=== PATIENT | female | born 1980 | race Caucasian/White ===

== ENCOUNTER 2016-08-05 04:43 | Inpatient (IN) ==
[2016-08-05 05:35] LABS: Bilirubin,Urine Negative (Negative); Blood,Urine Negative (Negative); Clarity,Urine Cloudy (Clear); Color,Urine Yellow (Yellow); Glucose,Urine (UA) Normal (Normal); Ketones,Urine Negative (Negative); Leukocyte Esterase,Urine Negative (Negative); Nitrite,Urine Negative (Negative); Protein,Urine 30 mg/dL (Neg-Trace); Specific Gravity,Urine 1.019 (1.010-1.025); Urobilinogen,Urine Normal (Normal)
[2016-08-05 05:38] LABS: Bacteria,Urine Few per hpf (None-Few); Hyaline Casts,Urine None Seen per lpf (None-Few); Squamous Epithelial Cell,Urine Many per lpf (None-Few)
[2016-08-05 05:42] LABS: Amphetamine Screen,Urine Negative ng/mL (Cutoff=1000); Barbiturate Screen,Urine Negative ng/mL (Cutoff=200); Benzodiazepines Screen,Urine Negative ng/mL (Cutoff=200); Cannabinoid Screen,Urine Negative ng/mL (Cutoff = 50); Cocaine Screen,Urine Negative ng/mL (Cutoff= 300); Opiate Screen,Urine Positive ng/mL (Cutoff=300); Phencyclidine Screen,Urine Negative ng/mL (Cutoff=25)
[2016-08-05 06:43] LABS: Red Cell Distribution Width 14.6 % (11.5-14.5)
[2016-08-05 06:45] LABS: Hemoglobin 9.9 g/dL (11.5-15.4); Mean Corpuscular Hemoglobin 31.5 pg (28.0-33.3); Mean Corpuscular Volume 95.5 fL (83.0-100.0); Mean Platelet Volume 9.1 fL (9.4-12.4); Monocytes # 1.1 K/mcL (0.0-1.3); Platelet Count 488 K/mcL (140-400); Red Blood Count 3.14 M/mcL (3.82-4.97)
[2016-08-05] MEDS ORDERED: Ipratropium/Albuterol Neb 3 ML IH ONE (06:52)
[2016-08-05 06:59] LABS: Alanine Aminotransferase 7 Units/L (0-55); Albumin 2.9 g/dL (3.5-5.0); Albumin/Globulin Ratio 0.7 (1.1-2.2); Alkaline Phosphatase 78 Units/L (38-126); Aspartate Amino Transferase 14 Units/L (5-34); BUN/Creatinine Ratio 10 (6-26); Bilirubin,Total 0.2 mg/dL (0.2-1.2); Blood Urea Nitrogen 7 mg/dL (7-20); Calcium 8.8 mg/dL (8.6-10.8); Carbon Dioxide 24 mEq/L (19-29); Chloride 101 mEq/L (98-109); Globulin 4.2 g/dL (2.4-3.5); Glucose 113 mg/dL (70-99); Osmolality,Calculated 277 (280-300); Sodium 134 mEq/L (136-145); Total Protein 7.1 g/dL (6.0-8.3); eGFR For African Americans > 60 (> 60); eGFR For Non-African Americans > 60 (> 60)
[2016-08-05 07:04] LABS: Lymphocytes # 1.6 K/mcL (0.6-4.6)
--- NOTE | 2016-08-05 07:08 | Emergency Department Note ---
Disposition Clinical Impression: Generalized seizure Aspiration pneumonia Qualifiers: Aspiration pneumonia type: due to gastric secretions Laterality: bilateral Lung location: lower lobe of lung Qualified Code(s): J69.0 - Pneumonitis due to inhalation of food and vomit Disposition: Admitted As Inpatient Referrals: Na Rajan MD [Primary Care Provider] - Forms: ED Satisfaction Letter Time of Disposition: 08:44 Seizure HPI - General Chief Complaint: ED Seizure Stated Complaint: Seizure Time Seen by Provider: 08/05/16 05:26 Source: patient, EMS Limitations: no limitations - History of Present Illness HPI Narrative: this is a continuation of care. please merge these 2 charts. No change in patients condition. 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 Constitutional: Denies: fever, chills, weakness, weight change Eyes: Denies: eye pain, eye discharge, vision change ENT ED: Denies: ear pain, throat pain, dental pain, hearing loss, epistaxis, congestion, dysphagia Cardiovascular: Denies: chest pain, palpitations, dyspnea on exertion, edema, syncope Respiratory: Denies: cough, dyspnea, wheezes, hemoptysis, stridor Gastrointestinal: Denies: abdominal pain, nausea, vomiting, diarrhea, constipation, hematemesis, melena, hematochezia Genitourinary: Denies: dysuria, frequency, hematuria, discharge Musculoskeletal: Denies: back pain, neck pain, arthralgia, myalgia Integumentary: Denies: rash, abrasion, lesions Neurological: Denies: headache, weakness, numbness, paresthesias, confusion, abnormal gait, vertigo Psychiatric: Denies: anxiety, depression, suicidal thoughts, homicidal thoughts , auditory hallucinations, visual hallucinations Endocrine: Denies: fatigue Past Medical History - Past Medical History Attestation: Yes The following information was validated with the patient. Source: patient, nursing notes reviewed Medical history: Reports: no medical history Psychiatric history: Reports: ADHD, depression - Social History Smoking Status: Current every day smoker Smokeless Tobacco Status: No Alcohol use: Reports: occasionally Drug use: Reports: none Physical Exam - General Limitations: no limitations General appearance: alert, other - Head Head exam: atraumatic, normocephalic, normal inspection - Eye Eye exam: Present: normal appearance, PERRL, EOMI Course - Consultations Consultation #1: spoke with hospitalist, Dr. Love who accepted the patient. Time: 08:40 Vital Signs Temperature 98.4 F 08/05/16 04:44 Pulse Rate 107 08/05/16 04:44 Respiratory Rate 18 08/05/16 04:44 Blood Pressure 112/44 08/05/16 04:44 O2 Sat by Pulse Oximetry 93 L 08/05/16 04:44 Temperature 98.4 F 08/05/16 04:44 Pulse Rate 86 08/05/16 08:01 Respiratory Rate 12 08/05/16 08:01 Blood Pressure 114/70 08/05/16 08:01 O2 Sat by Pulse Oximetry 100 08/05/16 08:01 Oxygen Delivery Oxygen Delivery Room Air Seizure - MDM Narrative Medical decision making narrative: Aspiration pneumonia Seizure Opiate Use - narcan did work after administration more alert however, SAO2 on room air 88-90%, on 2 l / n.c. 94-98% - Differential Diagnosis Likely: generalized seizure - Lab Data Result diagrams: 08/05/16 06:28 08/05/16 06:28 Lab Results 08/05/16 08/05/16 08/05/16 Range/Units 05:21 05:21 05:21 WBC (4.3-11.1) K/mcL RBC (3.82-4.97) M/mcL Hgb (11.5-15.4) g/dL Hct (35.3-44.9) % MCV (83.0-100.0) fL MCH (28.0-33.3) pg MCHC (31.6-35.5) g/dL RDW (11.5-14.5) % Plt Count (140-400) K/mcL MPV (9.4-12.4) fL Seg Neutrophils % % Lymphocytes % % Monocytes % % Neutrophils # (1.6-8.9) K/mcL Lymphocytes # (0.6-4.6) K/mcL Monocytes # (0.0-1.3) K/mcL Platelet Estimate (Normal) Sodium (136-145) mEq/L Potassium (3.5-4.5) mEq/L Chloride (98-109) mEq/L Carbon Dioxide (19-29) mEq/L BUN (7-20) mg/dL Creatinine (0.57-1.11) mg/dL Est GFR ( Amer) (> 60) Est GFR (Non-Af Amer) (> 60) BUN/Creatinine Ratio (6-26) Glucose (70-99) mg/dL Calculated Osmolality (280-300) Calcium (8.6-10.8) mg/dL Total Bilirubin (0.2-1.2) mg/dL AST (5-34) Units/L ALT (0-55) Units/L Alkaline Phosphatase (38-126) Units/L Serum Total Protein (6.0-8.3) g/dL Albumin (3.5-5.0) g/dL Globulin (2.4-3.5) g/dL Albumin/Globulin Ratio (1.1-2.2) Urine Color Yellow (Yellow) Urine Clarity Cloudy A (Clear) Urine pH 6.0 (5.0-8.0) pH Units Ur Specific [place] 1.019 (1.010-1.025) Urine Protein 30 H (Neg-Trace) mg/dL Urine Glucose (UA) Normal (Normal) mg/dL Urine Ketones Negative (Negative) mg/dL Urine Blood Negative (Negative) Urine Nitrite Negative (Negative) Urine Bilirubin Negative (Negative) Urine Urobilinogen Normal (Normal) mg/dL Ur Leukocyte Esterase Negative (Negative) Urine Microscopic RBC 3-5 H (0-3) per hpf Urine Microscopic WBC 5-15 H (0-3) per hpf Ur Squamous Epith Cells Many H (None-Few) per lpf Urine Bacteria Few (None-Few) per hpf Hyaline Casts None Seen (None-Few) per lpf Ur Culture Indicated? YES A (NO) Urine Test Negative (Negative) Urine Opiates Screen Positive H (Padiud=014) ng/mL Ur Barbiturates Screen Negative (Jsueke=721) ng/mL Ur Phencyclidine Scrn Negative (Cutoff=25) ng/mL Ur Amphetamines Screen Negative (Lkqjvr=1160) ng/mL U Benzodiazepines Scrn Negative (Owmddf=487) ng/mL Urine Cocaine Screen Negative (Cutoff= 300) ng/mL U Marijuana (THC) Screen Negative (Cutoff = 50) ng/mL 08/05/16 08/05/16 Range/Units 06:28 06:28 WBC 26.7 H (4.3-11.1) K/mcL RBC 3.14 L (3.82-4.97) M/mcL Hgb 9.9 L (11.5-15.4) g/dL Hct 30.0 L (35.3-44.9) % MCV 95.5 (83.0-100.0) fL MCH 31.5 (28.0-33.3) pg MCHC 33.0 (31.6-35.5) g/dL RDW 14.6 H (11.5-14.5) % Plt Count 488 H (140-400) K/mcL MPV 9.1 L (9.4-12.4) fL Seg Neutrophils % 90.0 % Lymphocytes % 6.0 % Monocytes % 4.0 % Neutrophils # 24.0 H (1.6-8.9) K/mcL Lymphocytes # 1.6 (0.6-4.6) K/mcL Monocytes # 1.1 (0.0-1.3) K/mcL Platelet Estimate Slight increase H (Normal) Sodium 134 L (136-145) mEq/L Potassium 4.0 (3.5-4.5) mEq/L Chloride 101 (98-109) mEq/L Carbon Dioxide 24 (19-29) mEq/L BUN 7 (7-20) mg/dL Creatinine 0.67 (0.57-1.11) mg/dL Est GFR ( Amer) > 60 (> 60) Est GFR (Non-Af Amer) > 60 (> 60) BUN/Creatinine Ratio 10 (6-26) Glucose 113 H (70-99) mg/dL Calculated Osmolality 277 L (280-300) Calcium 8.8 (8.6-10.8) mg/dL Total Bilirubin 0.2 (0.2-1.2) mg/dL AST 14 (5-34) Units/L ALT 7 (0-55) Units/L Alkaline Phosphatase 78 (38-126) Units/L Serum Total Protein 7.1 (6.0-8.3) g/dL Albumin 2.9 L (3.5-5.0) g/dL Globulin 4.2 H (2.4-3.5) g/dL Albumin/Globulin Ratio 0.7 L (1.1-2.2) Urine Color (Yellow) Urine Clarity (Clear) Urine pH (5.0-8.0) pH Units Ur Specific [place] (1.010-1.025) Urine Protein (Neg-Trace) mg/dL Urine Glucose (UA) (Normal) mg/dL Urine Ketones (Negative) mg/dL Urine Blood (Negative) Urine Nitrite (Negative) Urine Bilirubin (Negative) Urine Urobilinogen (Normal) mg/dL Ur Leukocyte Esterase (Negative) Urine Microscopic RBC (0-3) per hpf Urine Microscopic WBC (0-3) per hpf Ur Squamous Epith Cells (None-Few) per lpf Urine Bacteria (None-Few) per hpf Hyaline Casts (None-Few) per lpf Ur Culture Indicated? (NO) Urine Test (Negative) Urine Opiates Screen (Qkvtun=050) ng/mL Ur Barbiturates Screen (Avbvpi=915) ng/mL Ur Phencyclidine Scrn (Cutoff=25) ng/mL Ur Amphetamines Screen (Fjzqqj=9921) ng/mL U Benzodiazepines Scrn (Eatrgy=019) ng/mL Urine Cocaine Screen (Cutoff= 300) ng/mL U Marijuana (THC) Screen (Cutoff = 50) ng/mL Attestation Statement - Attestation Attestation: I examined this patient and my medical decision-making was reviewed with the [employer] ARCHITECT/PA/Advanced Practice Nurse/Resident Physician. I agree with the documented findings, disposition and treatment plan as described except to the extent set forth below. Patient emergency department after reported seizure. Patient denies any history of seizure. She denies taking any opiates that she tested positive for. She does admit to half a Percocet yesterday morning. On exam she is awake and alert. Clear lungs with noted to be hypoxic. Plan. The patient has aspiration pneumonia on her chest x-ray. This is only hypoxic at 88% on room air. She is given antibiotics and admitted. Seizure workup has been unremarkable.
[2016-08-05] MEDS ORDERED: Naloxone 0.4 MG/ML INJ IVP ONE (07:26)
[2016-08-05] MEDS ORDERED: Piperacillin/Tazobactam 3.375 GM in D5% in Water (Mini-Bag+) 100 ML IVPB ONE (08:27)
[2016-08-05] MEDS ORDERED: Naloxone 0.4 MG/ML INJ IVP PRN (08:51)
--- NOTE | 2016-08-05 09:22 | Internal Med History&Physical ---
Date of Encounter: 08/05/16 Time of Encounter: 08:50 Assessment and Plan (1) Generalized seizure Current visit: Yes Status: Acute Patient with a new episode of seizure. Will place under observation with seizure precautions. Get MRI of the brain and EEG. No indication for antibiotic agents at this time. Could be related to opiate use. (2) Aspiration pneumonia Current visit: Yes Status: Acute Likely due to seizure. WBC count is elevated. Patient was hypoxic initially but is now improving and is saturating well on room air. Will treat with empiric antibiotics. Qualifiers: Aspiration pneumonia type: due to gastric secretions Laterality: bilateral Lung location: lower lobe of lung Qualified Code(s): J69.0 - Pneumonitis due to inhalation of food and vomit Internal Medicine - H&P: HPI Chief complaint: Seizure Admitted From: Emergency Dept Plans for Post Hospital Care: Home History of present illness: Ms. Fontana is a 35 year old female with no significant past medical history presented to the ER with a witnessed seizure earlier today. The patient herself does not recollect anything that happened but she remembers finding her partner trying to calm her down and she apparently told her that she had a seizure. It appears to have been a generalized tonic-clonic/jerking activity. With some postictal period. No bowel bladder incontinence or tongue biting. Patient does not have a history of seizures since she has never had seizures in the past. She denies any difficulty breathing or shortness of breath at this time. Denies any cough. She is a chronic smoker. Denies any wheezing. No chest pain fever chills or night sweats. The patient does report that she was having a headache earlier in the day and she was given Percocet for it by a family friend. Past Med Surg Social Fam HX - Past Medical History Attestation: Yes The following information was validated with the patient. Medical history: no medical history Psychiatric history: ADHD, depression - Social History Smoking Status: Current every day smoker Smokeless Tobacco Status: No Alcohol use: occasionally Drug use: none - Additional Family History Additional family history: Reviewed and found noncontributory at this time Internal Medicine - H&P: Meds Albuterol Sulfate [Albuterol Inhaler] 2 puff IH QID 2 Days 12/16/15 [Rx] TraMADol [Ultram] 50 mg PO Q6HR PRN #10 tablet 12/16/15 [Rx] Multivitamin [One Daily Essential] 1 tab PO DAILY 08/05/16 [History] Allergies azithromycin [From Zithromax Z-Carlos] Allergy (Verified 12/16/15 11:41) Rash All Systems PM: A 10-system review of systems was performed and is negative for pertinent findings except as documented above in the HPI. - Constitutional Constitutional: no chills, no fever(s), no night sweats - EENT Eyes: no change in vision, no discharge, no pain, no photophobia Ears: no ear discharge, no ear pain, no tinnitus Nose, mouth and throat: no dysphagia, no nasal discharge, no neck pain, no sore throat - Cardiovascular Cardiovascular ROS IM: no chest pain, no diaphoresis, no dyspnea, no lightheadedness, no palpitations, no syncope - Respiratory Respiratory: no cough, no dyspnea, no wheezing, no excessive phlegm production - Gastrointestinal Gastrointestinal: no abdominal pain, no diarrhea, no hematemesis, no hematochezia, no melena, no nausea, no vomiting - Genitourinary Genitourinary: no change in urinary stream, no dysuria, no flank pain, no hematuria - Musculoskeletal Musculoskeletal ROS IM: no numbness, no tingling - Integumentary Integumentary IM: no rash, no unusual bruising - Neurological Neurological ROS: convulsions, no confusion, no focal weakness, no numbness, no tingling, no tremor(s) - Hematologic/Lymphatic Hematologic/Lymphatic: no easy bruising - Constitutional Vitals: Temp Pulse Resp BP Pulse Ox 98.4 F 86 12 114/70 100 08/05/16 04:44 08/05/16 08:01 08/05/16 08:01 08/05/16 08:01 08/05/16 08:01 General appearance: Present: A&O X 3, no acute distress, answers questions appropriately - Eye Eye exam: Present: PERRL, conjuntiva pink, sclera anicteric Pupils: Present: PERRL - Neck Neck exam general surgery: Present: supple, trachea midline. Absent: lymphadenopathy - Respiratory Respiratory exam: Present: CTAB. Absent: accessory muscle use, rales, rhonchi, wheezes - Cardiovascular Cardiovascular exam: Present: RRR, +S1, +S2. Absent: diastolic murmur, gallop, rubs, systolic murmur - GI/Abdominal GI/Abdominal exam: Present: normal bowel sounds, soft, no peritoneal signs. Absent: distended, tenderness - Extremities Exam Extremities exam: Present: warm, radial pulses palpable and symetrical. Absent : calf tenderness, cyanotic, pedal edema - Neurological Exam Neurological exam: Present: alert, CN II-XII intact, oriented X3, no focal deficits. Absent: facial droop, speech deficit - Skin Skin exam: Present: dry, intact Internal Med - H&P Results - Labs CBC & Chem 7: 08/05/16 06:28 08/05/16 06:28 Labs: Short CBC 08/05/16 Range/Units 06:28 WBC 26.7 H (4.3-11.1) K/mcL Hgb 9.9 L (11.5-15.4) g/dL Hct 30.0 L (35.3-44.9) % Plt Count 488 H (140-400) K/mcL Neutrophils # 24.0 H (1.6-8.9) K/mcL BMP 08/05/16 06:28 Sodium 134 L Potassium 4.0 Chloride 101 Carbon Dioxide 24 BUN 7 Creatinine 0.67 Glucose 113 H Calcium 8.8 Liver Function 08/05/16 Range/Units 06:28 Total Bilirubin 0.2 (0.2-1.2) mg/dL AST 14 (5-34) Units/L ALT 7 (0-55) Units/L Alkaline Phosphatase 78 (38-126) Units/L Albumin 2.9 L (3.5-5.0) g/dL Urine 08/05/16 Range/Units 05:21 Urine Color Yellow (Yellow) Urine Clarity Cloudy A (Clear) Urine pH 6.0 (5.0-8.0) pH Units Ur Specific [place] 1.019 (1.010-1.025) Urine Protein 30 H (Neg-Trace) mg/dL Urine Glucose (UA) Normal (Normal) mg/dL - Impressions ITS Impressions Head CT 08/05/16 05:26 IMPRESSION: No acute intracranial abnormality. D/ / Arnaud Mason MD / Arnaud Mason MD Interpreting Provider: Arnaud Mason MD Chest X-Ray 08/05/16 07:18 IMPRESSION: Bilateral lower lobe pulmonary opacities consistent with aspiration pneumonitis. D/ / Ivan Lr MD / Ivan Lr MD Interpreting Provider: Ivan Lr MD - Attending Attestation This document has been at least partially created by [employer] recognition technology by Dr. Love. Errors in grammar, wording or other phrases may exist. If errors are found after the documentation is signed, they will be addressed individually in the addendum section of this document when appropriate.
[2016-08-05] MEDS ORDERED: Ipratropium/Albuterol Neb 3 ML IH PRN (09:31)
[2016-08-05] MEDS: 0.9 % Sodium Chloride 1,000 ML IVC SCH ×2 (11:56→21:33)
[2016-08-05] MEDS: Nicotine 21 MG PATCH.TD24 TD SCH (11:56)
[2016-08-05] MEDS: Clindamycin 600 MG/50 ML 600 MG/50 ML IV.SOLN IVPB SCH (16:17)
--- NOTE | 2016-08-05 16:49 | EEG/EMG/Oth Biometrics Report ---
EEG Procedure Report Date of procedure: 08/05/16 EEG Procedure: Routine EEG Procedure Note: This EEG was acquired with standard international 10-20 electrodes placement system with EKG recording. Awake background activity was characterized by presence of posterior dominant alpha rhythm with best frequency up to 8.5 Hz. the background activity was reactive to eye openings. Sleep stages were characterized by presence of background slowing, vertex waves, K-complexes and sleep spindles. there are no electrographic seizures identified. No epileptifrom discharges or focal slowing noted during the study. Photic stimulation produced no significant abnormalities. EKG tracing showed no cardiac dysarrhythmia. Impression: this is a normal awake and asleep EEG. Clinical correlation: normal EEGs, however, do not exclude epilepsy. Clinical correlation advised.
[2016-08-05] MEDS: Acetaminophen 325 MG TABLET PO PRN ×2 (16:56→22:52)
--- NOTE | 2016-08-05 17:25 | Neurology - Consult Note ---
Date of Encounter: 08/05/16 Time of Encounter: 17:23 Assessment and Plan (1) Generalized seizure Current Visit: Yes Status: Acute first episode of seizure with unclear provocation but does have anxiety and chronic pain using both percocet and valium. Coulld also have susceptibility for generalized epilepsy under stress or provocation. MRI of brain and EEG normal studies. Will recommend no antiepileptic therapy at this time. Seizure precaution advised. No further testing recommended. patient to follow up with PCP for proper treatment of anxiety. History of Present Illness Chief complaint: seizure HPI: Ms. Fontana is a 35 year old female with PMH significant for chronic pain, anxiety and insomnia who developed witnessed, first episode of seizure. NO warnings, no tongue biting and no urinary incontinence. Witnesses not available to review. Feels body sore and 'brain stooped'. MRI of brain and EEG normal studies. No past history of seizures. Son has febrile seizures. Takes valium for anxiety and percocet for chronic pain. Past Med Surg Social Fam HX - Past Medical History Medical history: no medical history Psychiatric history: ADHD, depression - Past Surgical History Surgical History: no surgical history - Social History Smoking Status: Current every day smoker Packs per day: 2 Smokeless Tobacco Status: No Alcohol use: none, rarely Drug use: none Medications and Allergies Albuterol Sulfate [Albuterol Inhaler] 2 puff IH QID 2 Days 12/16/15 [Rx] TraMADol [Ultram] 50 mg PO Q6HR PRN #10 tablet 12/16/15 [Rx] Multivitamin [One Daily Essential] 1 tab PO DAILY 08/05/16 [History] Allergies azithromycin [From Zithromax Z-Carlos] Allergy (Verified 12/16/15 11:41) Rash All Systems: A 10-system review of systems was performed and is negative for pertinent findings except as documented above in the HPI. Physical Examination - Vital Signs Vital Signs: Initial Vital Signs Temp Pulse Resp BP Pulse Ox 98.4 F 107 18 112/44 93 L 08/05/16 04:44 08/05/16 04:44 08/05/16 04:44 08/05/16 04:44 08/05/16 04:44 - Constitutional General appearance: comfortable - Neurologic Detailed motor examination: full strength in all major muscle groups Motor examination - right side: 5/5: deltoids, biceps, triceps, wrist flexion, wrist extension, oil burner repairer, hip flexors, tibialis Anterior, quadriceps, toe extension (EHL), plantarflexion Motor examination - left side: 09/20: deltoids, biceps, triceps, wrist flexion, wrist extension, hip flexors, oil burner repairer, quadriceps, tibialis Anterior, toe extension (EHL), plantarflexion Detailed sensory examination: intact Reflex and gait examination: intact Mental Status Examination: awake, alert, oriented to person, oriented to place, oriented to time, follows commands appropriately, answers questions appropriately, no agnosia, no aphasia, no aproxia Cranial nerve examination: PERRL, EOMI, visual garcia intact, corneal reflexes brisk symmetrically, sensory to face intact, mastication intact, no facial asymmetry is present, no dysarthria, hearing is intact symmetrically, soft palate elevates bilaterally upon phonation, gag reflex intact, flexes SCM and trapezius muscles symmetrically with full power, tongue protrudes midline, no atrophy or facial fasiculations present Cerebellar examination: no dysmetria, performs finger to nose and heel to bates symmetrically without ataxia, no gait ataxia, no truncal ataxia, no difficulty with rapid alternating movements Results - Laboratory Findings CBC and BMP: 08/05/16 06:28 08/05/16 06:28 Abnormal lab findings: Abnormal lab results WBC 26.7 K/mcL (4.3-11.1) H 08/05/16 06:28 RBC 3.14 M/mcL (3.82-4.97) L 08/05/16 06:28 Hgb 9.9 g/dL (11.5-15.4) L 08/05/16 06:28 Hct 30.0 % (35.3-44.9) L 08/05/16 06:28 RDW 14.6 % (11.5-14.5) H 08/05/16 06:28 Plt Count 488 K/mcL (140-400) H 08/05/16 06:28 MPV 9.1 fL (9.4-12.4) L 08/05/16 06:28 Neutrophils # 24.0 K/mcL (1.6-8.9) H 08/05/16 06:28 Platelet Estimate Slight increase (Normal) H 08/05/16 06:28 Sodium 134 mEq/L (136-145) L 08/05/16 06:28 Glucose 113 mg/dL (70-99) H 08/05/16 06:28 Calculated Osmolality 277 (280-300) L 08/05/16 06:28 Albumin 2.9 g/dL (3.5-5.0) L 08/05/16 06:28 Globulin 4.2 g/dL (2.4-3.5) H 08/05/16 06:28 Albumin/Globulin Ratio 0.7 (1.1-2.2) L 08/05/16 06:28 Urine Clarity Cloudy (Clear) A 08/05/16 05:21 Urine Protein 30 mg/dL (Neg-Trace) H 08/05/16 05:21 Urine Microscopic RBC 3-5 per hpf (0-3) H 08/05/16 05:21 Urine Microscopic WBC 5-15 per hpf (0-3) H 08/05/16 05:21 Ur Squamous Epith Cells Many per lpf (None-Few) H 08/05/16 05:21 Ur Culture Indicated? YES (NO) A 08/05/16 05:21 Urine Opiates Screen Positive ng/mL (Bdvqir=252) H 08/05/16 05:21 Consult Discharge Plan - Plan Referrals: Na Rajan MD [Primary Care Provider] -
[2016-08-06] MEDS: Clindamycin 600 MG/50 ML 600 MG/50 ML IV.SOLN IVPB SCH ×3 (00:20→15:53)
[2016-08-06] MEDS: Acetaminophen 325 MG TABLET PO PRN ×2 (04:52→10:20)
[2016-08-06 07:28] LABS: Basophils % 0.3 %; Eosinophils # 0.4 K/mcL (0.0-0.6); Eosinophils % 3.4 %; Hematocrit 26.5 % (35.3-44.9); Immature Granulocytes % 0.4 % (0-4); Lymphocytes # 4.2 K/mcL (0.6-4.6); Lymphocytes % 32.4 %; Mean Corpuscular HGB Conc 31.3 g/dL (31.6-35.5); Mean Corpuscular Volume 98.9 fL (83.0-100.0); Mean Platelet Volume 9.1 fL (9.4-12.4); Monocytes % 7.7 %; Neutrophils # 7.2 K/mcL (1.6-8.9); Platelet Count 442 K/mcL (140-400); Red Blood Count 2.68 M/mcL (3.82-4.97); Red Cell Distribution Width 14.7 % (11.5-14.5); Segmented Neutrophils % 55.8 %
[2016-08-06 07:29] LABS: Hemoglobin 8.3 g/dL (11.5-15.4)
[2016-08-06 07:43] LABS: BUN/Creatinine Ratio 8 (6-26); Calcium 8.3 mg/dL (8.6-10.8); Carbon Dioxide 24 mEq/L (19-29); Chloride 108 mEq/L (98-109); Glucose 118 mg/dL (70-99); Osmolality,Calculated 286 (280-300); Potassium 3.9 mEq/L (3.5-4.5); Sodium 139 mEq/L (136-145); eGFR For African Americans > 60 (> 60); eGFR For Non-African Americans > 60 (> 60)
[2016-08-06 07:45] LABS: Blood Urea Nitrogen 5 mg/dL (7-20)
[2016-08-06] MEDS: 0.9 % Sodium Chloride 1,000 ML IVC SCH ×4 (08:03→17:58)
[2016-08-06] MEDS: Nicotine 21 MG PATCH.TD24 TD SCH (08:04)
--- NOTE | 2016-08-06 12:15 | Electrocardiograph Report ---
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
[2016-08-06] MEDS: Ibuprofen 600 MG TABLET PO PRN ×2 (13:45→19:57)
[2016-08-06] MEDS: Multivit/Ca/Min/Fe/FA 1 TAB TABLET PO SCH (16:40)
[2016-08-06] MEDS: *HR* HYDROcodone/Acet 5/325 mg TABLET PO PRN ×2 (16:41→23:24)
[2016-08-07] MEDS: 0.9 % Sodium Chloride 1,000 ML IVC SCH ×3 (04:00→23:51)
[2016-08-07] MEDS: Ibuprofen 600 MG TABLET PO PRN ×3 (04:01→16:11)
[2016-08-07] MEDS: *HR* HYDROcodone/Acet 5/325 mg TABLET PO PRN ×3 (05:48→19:37)
[2016-08-07 07:36] LABS: Basophils # 0.1 K/mcL (0.0-0.2); Basophils % 0.5 %; Eosinophils # 0.6 K/mcL (0.0-0.6); Eosinophils % 4.6 %; Hematocrit 27.6 % (35.3-44.9); Hemoglobin 8.6 g/dL (11.5-15.4); Immature Granulocytes % 0.4 % (0-4); Lymphocytes # 4.4 K/mcL (0.6-4.6); Lymphocytes % 31.7 %; Mean Corpuscular HGB Conc 31.2 g/dL (31.6-35.5); Mean Corpuscular Hemoglobin 30.6 pg (28.0-33.3); Mean Corpuscular Volume 98.2 fL (83.0-100.0); Monocytes # 0.9 K/mcL (0.0-1.3); Monocytes % 6.5 %; Neutrophils # 7.9 K/mcL (1.6-8.9); Platelet Count 482 K/mcL (140-400); Red Blood Count 2.81 M/mcL (3.82-4.97); Red Cell Distribution Width 14.9 % (11.5-14.5); Segmented Neutrophils % 56.3 %
[2016-08-07 07:42] LABS: BUN/Creatinine Ratio 11 (6-26); Blood Urea Nitrogen 7 mg/dL (7-20); Calcium 8.8 mg/dL (8.6-10.8); Carbon Dioxide 24 mEq/L (19-29); Chloride 110 mEq/L (98-109); Glucose 82 mg/dL (70-99); Osmolality,Calculated 287 (280-300); Potassium 4.3 mEq/L (3.5-4.5); Sodium 140 mEq/L (136-145); eGFR For African Americans > 60 (> 60); eGFR For Non-African Americans > 60 (> 60)
[2016-08-07] MEDS: Nicotine 21 MG PATCH.TD24 TD SCH (08:04)
[2016-08-07] MEDS: Multivit/Ca/Min/Fe/FA 1 TAB TABLET PO SCH (08:05)
[2016-08-07] MEDS: Levofloxacin 500 MG/100 ML 500 MG/100 ML BAG IVPB SCH (11:53)
--- NOTE | 2016-08-07 14:18 | Internal Med Progress Note ---
Date of Encounter: 08/06/16 Time of Encounter: 15:30 - Assessment and plan (1) Aspiration pneumonia Current Visit: Yes Status: Acute Assessment and plan: #1 discontinue IV antibiotics #2 put her on to oral Cleocin 300 mg by mouth 3 times a day #3 check CBC in the morning if it is doing well and she is feeling well and discharged home tomorrow morning, 08/07/2016 Qualifiers: Aspiration pneumonia type: due to gastric secretions Laterality: bilateral Lung location: lower lobe of lung Qualified Code(s): J69.0 - Pneumonitis due to inhalation of food and vomit - Time Spent With Patient 25 - 35 minutes - Subjective Interval history: She states she is feeling some better. They have been no seizure activity. Chest x-ray seems indicate the possibility of an aspiration pneumonia show she was started on Cleocin because of some concern about her being allergic to Zosyn /penicillin. - Constitutional Vitals: Temp Pulse Resp BP Pulse Ox 98.3 F 80 16 107/68 97 08/07/16 11:52 08/07/16 11:52 08/07/16 11:52 08/07/16 11:52 08/07/16 11:52 General appearance: Present: A&O X 3, no acute distress, answers questions appropriately - Respiratory Respiratory exam: Present: decreased breath sounds, rhonchi, wheezes Additional comments: Some wheezes and rhonchi at the right lung base. Internal Medicine: Result - Labs CBC & Chem 7: 08/07/16 07:15 08/07/16 07:15 Labs: Short CBC 08/07/16 Range/Units 07:15 WBC 14.0 H (4.3-11.1) K/mcL Hgb 8.6 L (11.5-15.4) g/dL Hct 27.6 L (35.3-44.9) % Plt Count 482 H (140-400) K/mcL Neutrophils # 7.9 (1.6-8.9) K/mcL BMP 08/07/16 07:15 Sodium 140 Potassium 4.3 Chloride 110 H Carbon Dioxide 24 BUN 7 Creatinine 0.64 Glucose 82 Calcium 8.8 - Impressions Impressions Chest X-Ray 08/07/16 08:23 IMPRESSION: Pneumonia at the bilateral lung bases, right more than left, increased at the right lung base since the prior study. Probable small right pleural effusion. D/ / Vince Moyer MD / Vince Moyer MD Interpreting Provider: Vince Moyer MD Consult Discharge Plan - Plan Referrals: Christine Ospina DO [Resident] - 08/07/16 9:00 am (Please bring your photo ID, insurance card, any medications you are on and the new patient packet that you will get in the mail. If you need to cancel, please give a 24 hour notice. Thank you)
--- NOTE | 2016-08-07 14:21 | Internal Med Progress Note ---
Date of Encounter: 08/07/16 Time of Encounter: 09:30 - Assessment and plan (1) Aspiration pneumonia Current Visit: Yes Status: Acute Assessment and plan: #1 had Levaquin 750 mg IV daily #2 recheck chest x-ray and CBC in the morning. If she is doing well tomorrow morning in the white count responding and she is feeling better we will get her discharged tomorrow Qualifiers: Aspiration pneumonia type: due to gastric secretions Laterality: bilateral Lung location: lower lobe of lung Qualified Code(s): J69.0 - Pneumonitis due to inhalation of food and vomit - Subjective Interval history: She still has a cough. Unfortunately her white count went up overnight. I went ahead and did a chest x-ray and it shows worsening pneumonia pattern on chest x-ray. - Constitutional Vitals: Temp Pulse Resp BP Pulse Ox 98.3 F 80 16 107/68 97 08/07/16 11:52 08/07/16 11:52 08/07/16 11:52 08/07/16 11:52 08/07/16 11:52 General appearance: Present: A&O X 3, no acute distress, answers questions appropriately - Expanded Respiratory Exam Location: rales: Right, Left, rhonchi: Left, Right - Cardiovascular Cardiovascular exam: Present: RRR Internal Medicine: Result - Labs CBC & Chem 7: 08/07/16 07:15 08/07/16 07:15 Labs: Short CBC 08/07/16 Range/Units 07:15 WBC 14.0 H (4.3-11.1) K/mcL Hgb 8.6 L (11.5-15.4) g/dL Hct 27.6 L (35.3-44.9) % Plt Count 482 H (140-400) K/mcL Neutrophils # 7.9 (1.6-8.9) K/mcL BMP 08/07/16 07:15 Sodium 140 Potassium 4.3 Chloride 110 H Carbon Dioxide 24 BUN 7 Creatinine 0.64 Glucose 82 Calcium 8.8 - Impressions Impressions Chest X-Ray 08/07/16 08:23 IMPRESSION: Pneumonia at the bilateral lung bases, right more than left, increased at the right lung base since the prior study. Probable small right pleural effusion. D/ / Vince Moyer MD / Vince Moyer MD Interpreting Provider: Vince Moyer MD Consult Discharge Plan - Plan Referrals: Christine Ospina DO [Resident] - 08/07/16 9:00 am (Please bring your photo ID, insurance card, any medications you are on and the new patient packet that you will get in the mail. If you need to cancel, please give a 24 hour notice. Thank you)
[2016-08-07] MEDS ORDERED: Prochlorperazine 10 MG/2 ML VIAL IM PRN (16:47)
[2016-08-07] MEDS: Prochlorperazine 10 MG/2 ML VIAL IVP PRN (17:05)
[2016-08-08] MEDS: Acetaminophen 325 MG TABLET PO PRN (02:33)
[2016-08-08 05:23] LABS: Basophils # 0.1 K/mcL (0.0-0.2); Basophils % 0.4 %; Eosinophils # 0.6 K/mcL (0.0-0.6); Eosinophils % 4.1 %; Hematocrit 27.1 % (35.3-44.9); Hemoglobin 8.8 g/dL (11.5-15.4); Immature Granulocytes % 0.6 % (0-4); Lymphocytes # 3.3 K/mcL (0.6-4.6); Lymphocytes % 22.7 %; Mean Corpuscular HGB Conc 32.5 g/dL (31.6-35.5); Mean Corpuscular Volume 98.5 fL (83.0-100.0); Mean Platelet Volume 9.2 fL (9.4-12.4); Monocytes # 0.8 K/mcL (0.0-1.3); Monocytes % 5.3 %; Neutrophils # 9.7 K/mcL (1.6-8.9); Platelet Count 510 K/mcL (140-400); Red Blood Count 2.75 M/mcL (3.82-4.97); Segmented Neutrophils % 66.9 %
[2016-08-08] MEDS: *HR* HYDROcodone/Acet 5/325 mg TABLET PO PRN ×3 (05:27→18:34)
[2016-08-08] MEDS: Ibuprofen 600 MG TABLET PO PRN ×2 (07:33→15:53)
[2016-08-08] MEDS: Multivit/Ca/Min/Fe/FA 1 TAB TABLET PO SCH (07:33)
[2016-08-08] MEDS: Nicotine 21 MG PATCH.TD24 TD SCH (07:34)
[2016-08-08] MEDS: Levofloxacin 500 MG/100 ML 500 MG/100 ML BAG IVPB SCH (12:31)
--- NOTE | 2016-08-08 17:14 | Internal Med Progress Note ---
Date of Encounter: 08/08/16 Time of Encounter: 09:45 - Assessment and plan (1) Aspiration pneumonia Current Visit: Yes Status: Acute Assessment and plan: #1 she was empirically treated for aspiration pneumonia. She was on Cleocin. She was switched over to oral Cleocin with worsening situation. White count for going up. Chest x-ray pattern seemed to worsen. She is having a concern for there is mention of an allergy to penicillins. #2 started on Levaquin. She has had some improvement over the past 2 days. However she still having some hypoxia. We will start aerosol treatments as well to see if that will help things along. Qualifiers: Aspiration pneumonia type: due to gastric secretions Laterality: bilateral Lung location: lower lobe of lung Qualified Code(s): J69.0 - Pneumonitis due to inhalation of food and vomit - Time Spent With Patient 25 - 35 minutes - Subjective Interval history: She still has a cough. She states she is feeling okay. She states she would like to go home. However we are trying to get her off oxygen and ambulate her for short walk and she will drop into the low 80s on her O2 saturations. - Constitutional Vitals: Temp Pulse Resp BP Pulse Ox 98.5 F 88 16 114/71 92 L 08/08/16 15:31 08/08/16 15:31 08/08/16 15:31 08/08/16 15:31 08/08/16 15:31 General appearance: Present: A&O X 3, no acute distress, answers questions appropriately - Respiratory Respiratory exam: Present: rales (Right base), rhonchi (Scattered bilateral diffuse basilar rhonchi). Absent: wheezes - Cardiovascular Cardiovascular exam: Present: RRR - Skin Skin exam: Present: dry, normal color, warm Internal Medicine: Result - Labs CBC & Chem 7: 08/08/16 04:54 08/07/16 07:15 Labs: Short CBC 08/08/16 Range/Units 04:54 WBC 14.4 H (4.3-11.1) K/mcL Hgb 8.8 L (11.5-15.4) g/dL Hct 27.1 L (35.3-44.9) % Plt Count 510 H (140-400) K/mcL Neutrophils # 9.7 H (1.6-8.9) K/mcL Consult Discharge Plan - Plan Referrals: Christine Ospina DO [Resident] - 10/07/16 9:00 am (Please bring your photo ID, insurance card, any medications you are on and the new patient packet that you will get in the mail. If you need to cancel, please give a 24 hour notice. Thank you)
[2016-08-08] MEDS ORDERED: Albuterol 2.5 MG/3 ML NEBULIZER IH PRN (17:17)
[2016-08-08] MEDS: Prochlorperazine 10 MG/2 ML VIAL IVP PRN (18:40)
[2016-08-08] MEDS: *HR* Heparin 5,000 UNIT/ML VIAL SQ SCH (23:54)
[2016-08-09] MEDS: *HR* HYDROcodone/Acet 5/325 mg TABLET PO PRN ×4 (00:44→18:54)
[2016-08-09 04:33] LABS: Basophils # 0.1 K/mcL (0.0-0.2); Basophils % 0.3 %; Eosinophils # 0.8 K/mcL (0.0-0.6); Eosinophils % 5.6 %; Hematocrit 26.2 % (35.3-44.9); Hemoglobin 8.6 g/dL (11.5-15.4); Immature Granulocytes % 0.4 % (0-4); Lymphocytes # 4.1 K/mcL (0.6-4.6); Lymphocytes % 26.8 %; Mean Corpuscular HGB Conc 32.8 g/dL (31.6-35.5); Mean Corpuscular Hemoglobin 31.4 pg (28.0-33.3); Mean Corpuscular Volume 95.6 fL (83.0-100.0); Mean Platelet Volume 9.3 fL (9.4-12.4); Monocytes # 0.9 K/mcL (0.0-1.3); Monocytes % 6.2 %; Neutrophils # 9.2 K/mcL (1.6-8.9); Platelet Count 529 K/mcL (140-400); Red Blood Count 2.74 M/mcL (3.82-4.97); Red Cell Distribution Width 14.8 % (11.5-14.5); Segmented Neutrophils % 60.7 %
[2016-08-09 04:54] LABS: BUN/Creatinine Ratio 12 (6-26); Blood Urea Nitrogen 8 mg/dL (7-20); Calcium 9.2 mg/dL (8.6-10.8); Carbon Dioxide 23 mEq/L (19-29); Chloride 109 mEq/L (98-109); Glucose 93 mg/dL (70-99); Osmolality,Calculated 286 (280-300); Potassium 4.5 mEq/L (3.5-4.5); Sodium 139 mEq/L (136-145); eGFR For African Americans > 60 (> 60); eGFR For Non-African Americans > 60 (> 60)
[2016-08-09] MEDS: Multivit/Ca/Min/Fe/FA 1 TAB TABLET PO SCH (09:13)
[2016-08-09] MEDS: Nicotine 21 MG PATCH.TD24 TD SCH (09:13)
[2016-08-09] MEDS: *HR* Heparin 5,000 UNIT/ML VIAL SQ SCH ×3 (09:13→23:48)
--- NOTE | 2016-08-09 09:30 | Internal Med Progress Note ---
Date of Encounter: 08/09/16 Time of Encounter: 09:27 - Assessment and plan (1) Hypoxia Current Visit: Yes Status: Acute Assessment and plan: hypoxia from bilat pneumonia (2) Generalized seizure Current Visit: Yes Status: Acute Assessment and plan: seen by neurology no medical treatment for now (3) Aspiration pneumonia Current Visit: Yes Status: Acute Assessment and plan: bilat aspiration pneumonia patient wants to go home but clinically not better still hypoxic with monimal exertion and wbc going up will consult ID change back to iv cleocin Qualifiers: Aspiration pneumonia type: due to gastric secretions Laterality: bilateral Lung location: lower lobe of lung Qualified Code(s): J69.0 - Pneumonitis due to inhalation of food and vomit - Subjective Interval history: patient with no prior medical problems admitted following seizure episode and developed aspiration pneumonia currently still hypoxic with minimal ambulation will chnage antiobiotic back to iv and check abg and consult ID wbc going back up - Constitutional Vitals: Temp Pulse Resp BP Pulse Ox 97.9 F 68 16 133/81 97 08/09/16 06:57 08/09/16 06:57 08/09/16 06:57 08/09/16 06:57 08/09/16 06:57 General appearance: Present: A&O X 3, no acute distress, answers questions appropriately - Head Head exam: Present: atraumatic, normocephalic - Eye Eye exam: Present: PERRL, conjuntiva pink, sclera anicteric Pupils: Present: PERRL - Neck Neck exam general surgery: Present: supple, trachea midline. Absent: lymphadenopathy - Respiratory Respiratory exam: Present: decreased breath sounds, wheezes - Cardiovascular Cardiovascular exam: Present: RRR, +S1, +S2. Absent: diastolic murmur, gallop, rubs, systolic murmur - GI/Abdominal GI/Abdominal exam: Present: normal bowel sounds, soft, no peritoneal signs. Absent: distended, tenderness - Extremities Exam Extremities exam: Present: warm, radial pulses palpable and symetrical. Absent : calf tenderness, cyanotic, pedal edema Internal Medicine: Result - Labs CBC & Chem 7: 08/09/16 04:13 08/09/16 04:13 Labs: Short CBC 08/09/16 Range/Units 04:13 WBC 15.1 H (4.3-11.1) K/mcL Hgb 8.6 L (11.5-15.4) g/dL Hct 26.2 L (35.3-44.9) % Plt Count 529 H (140-400) K/mcL Neutrophils # 9.2 H (1.6-8.9) K/mcL BMP 08/09/16 04:13 Sodium 139 Potassium 4.5 Chloride 109 Carbon Dioxide 23 BUN 8 Creatinine 0.65 Glucose 93 Calcium 9.2 Consult Discharge Plan - Plan Referrals: Christine Ospina DO [Resident] - 10/07/16 9:00 am (Please bring your photo ID, insurance card, any medications you are on and the new patient packet that you will get in the mail. If you need to cancel, please give a 24 hour notice. Thank you)
[2016-08-09 11:03] LABS: ABG Oxygen Saturation 82 % (95-98); ABG PCO2 38 mmHg (35-45); ABG PH 7.46 pH Units (7.32-7.45); ABG TCO2 28.2 mEq/L (20-26); Blood Gas FiO2 21 %
[2016-08-09 11:06] LABS: ABG PO2 43 mmHg (85-104)
[2016-08-09] MEDS: Levofloxacin 500 MG/100 ML 500 MG/100 ML BAG IVPB SCH (12:53)
--- NOTE | 2016-08-09 14:15 | Infectious Disease Consult ---
Date of Encounter: 08/09/16 Time of Encounter: 14:12 Assessment and Plan (1) Leukocytosis Status: Acute Assessment and plan: WBC 26.7 on arrival to the ED. Improved to 12.9, but has slowly been trending up over the past three days. Up to 15.1 today, but differential is normal. Initially likely reactive from seizure. Continue to trend. Blood cultures drawn 08/05/16 are NGTD x 2 sets. Qualifiers: Leukocytosis type: unspecified Qualified Code(s): D72.829 - Elevated white blood cell count, unspecified (2) Aspiration pneumonia Status: Suspected Assessment and plan: Pneumonia vs. pneumonitis. Likely secondary to aspiration. CXR on admission showed BLL pulmonary opacities consistent with aspiration pneumonitis. Repeat CXR 08/07/16 shows bilateral lung base PNA, right worse than left, worse than prior images. Patient reports cough with productive cough with green sputum prior to seizure event --> bronchitis vs. PNA? Encourage pulmonary toileting - ambulating, incentive spirometry, etc. O2 support as needed. Get CT of the chest with contrast to further evaluate. Get RIP to rule out underlying viral illness. Continue clindamycin 600mg IV Q8H for now. Discontinue Levaquin --> lowers seizure threshold. Duration of treatment depends on the clinical picture, but likely 7-10 days. Will likely be able to switch to oral antibiotics when ready for discharge. Monitor renal function and dose-adjust antibiotics. Start probiotic and encourage the patient to eat yogurt daily while on the clindamycin. Qualifiers: Aspiration pneumonia type: due to gastric secretions Laterality: bilateral Lung location: lower lobe of lung Qualified Code(s): J69.0 - Pneumonitis due to inhalation of food and vomit (3) Hypoxia Status: Acute Assessment and plan: pO2 40 on VBG. Pulmonology consulted. Likely secondary to aspiration pneumonia/pneumonitis. Continue O2 and wean as tolerated. (4) Generalized seizure Status: Acute Assessment and plan: Etiology unclear, but possibly secondary to poorly-controlled anxiety per Neurology. CT and MRI of the head are both negative. No nuchal rigidity, fevers, or AMS to indicate [employer]ED[employer]ER infection as cause. Neurology consulted --> no further testing or follow-up needed. Continue seizure precautions. Infectious Disease HPI - Data of Consult Patient: new to practice Consult date: 08/09/16 Requesting Physician: Maday Matias MD Primary Care Provider: Na Rajan - Consult Narrative Reason for consult: Aspiration PNA History of present illness: Ms. Fontana is a 35 year old female with a past medical history of anxiety and depression. The patient was admitted to the hospital August 05 for aspiration pneumonia and seizure. We are consulted August 09 for further evaluation and treatment recommendations regarding aspiration pneumonia. The patient's a 35-year-old female with past medical history as stated above. On the day of admission, the patient had a tonic-clonic seizure. She is unsure how long it lasted. She states that she had no urinary or bowel incontinence and did not bite her tongue. She is unsure if she vomited. The patient states she had had a cough with sputum prior to this episode for about a week. Upon arrival, she was afebrile. She was mildly tachycardic, but was otherwise hemodynamically stable. She'll white blood cell count of 26,000 with neutrophilic predominance. Appropriate metabolic panel was within normal limits. CT of the head was negative. Chest x-ray showed bilateral lower lobe pulmonary opacities consistent with aspiration pneumonitis. Urinalysis was obtained and was positive for pyuria, but culture was negative. Blood cultures were obtained 2 sets are currently no growth to date. A urine drug screen was obtained and was positive for opiates, which the patient is not prescribed. The patient was admitted for further evaluation and treatment. She was started on IV clindamycin. Neurology was consulted. The patient underwent a brain MRI which was negative. EEG was normal. Neurology has signed off. The patient's clinical status has continued to deteriorate. She states that the shortness of breath is worse. She reports a cough, but states it is not productive anymore. Her white blood cell count had improved, but has worsened over the past 3 days up to 15,000. 2 days ago, the primary teams which the patient from IV clindamycin to by mouth in preparation for discharge. The primary team switch the patient back to IV clindamycin today. We've asked to evaluate for further recommendations. During my exam today, the patient endorsed a history as stated above. No fevers or chills or rigors prior to admission. She reports chronic headaches and neck pain and states that this has been nothing out of the ordinary. She does report some mild shortness of breath and cough productive of green sputum for about a week. She denies any real chest pain. She denies any nausea, vomiting, diarrhea , constipation. She denies abdominal pain or appetite changes. She reports chronic back pain, but denies pain in any of her extremities. She denies any oral thrush or skin lesions. CC: Maday Matias MD Past Med Surg Social Fam HX - Past Medical History Attestation: Yes The following information was validated with the patient. Source: patient, old records reviewed, nursing notes reviewed Medical history: no medical history Psychiatric history: ADHD, depression - Past Surgical History Surgical History: no surgical history - Social History Smoking Status: Current every day smoker Packs per day: 2 Smokeless Tobacco Status: No Alcohol use: none, rarely Drug use: none Occupational status: unemployed Current living situation: Home - Independent Activity Level: Independent ambulation Recent Out of Country Travel Within the Last 8 Weeks: No Exposure or Possible Exposure to Illness During Travel: No Infectious Disease-CN:Meds Albuterol Sulfate [Albuterol Inhaler] 2 puff IH QID 2 Days 12/16/15 [Rx] TraMADol [Ultram] 50 mg PO Q6HR PRN #10 tablet 12/16/15 [Rx] Multivitamin [One Daily Essential] 1 tab PO DAILY 08/05/16 [History] Allergies azithromycin [From Zithromax Z-Carlos] Allergy (Verified 12/16/15 11:41) Rash All systems: reviewed and no additional remarkable complaints except as stated Exam - Constitutional Vitals: Temp Pulse Resp BP Pulse Ox 98.0 F 69 14 127/70 90 L 08/09/16 10:56 08/09/16 10:56 08/09/16 10:56 08/09/16 10:56 08/09/16 10:56 General appearance: average body habitus, cooperative, no acute distress - Head Head exam: Present: atraumatic, normal inspection, normocephalic - Eye Eye exam: Present: EOMI, normal appearance, PERRL Pupils: Present: normal accommodation - ENT ENT exam: Present: mucous membranes moist - Neck Neck exam: Present: normal inspection - Respiratory Respiratory exam: Present: rales (Right posterior base). Absent: respiratory distress, rhonchi, wheezes - Cardiovascular Cardiovascular exam: Present: RRR, +S1, +S2 - GI/Abdominal GI/Abdominal exam: Present: normal bowel sounds, soft. Absent: distended, tenderness - Extremities Exam Extremities exam: Present: normal inspection. Absent: joint swelling, pedal edema, tenderness - Neurological Exam Neurological exam: Present: alert, oriented X3, no focal deficits - Psychiatric Psychiatric exam: Present: normal affect, normal mood - Skin Skin exam: Present: dry, intact, normal color, warm Infectious Disease CN: Results - Labs CBC & Chem 7: 08/09/16 04:13 08/09/16 04:13 Cultures: Cultures 08/05/16 08:42 Blood Culture - Preliminary Peripheral Venipuncture No growth. 08/05/16 08:37 Blood Culture - Preliminary Peripheral Venipuncture No growth. 08/05/16 05:21 Urine Culture - Final Urine,Clean Catch No growth. Serology: Serology 08/05/16 08/05/16 Range/Units 05:21 05:21 Urine Color Yellow (Yellow) Urine Clarity Cloudy A (Clear) Urine pH 6.0 (5.0-8.0) pH Units Ur Specific Farrell 1.019 (1.010-1.025) Urine Protein 30 H (Neg-Trace) mg/dL Urine Glucose (UA) Normal (Normal) mg/dL Urine Ketones Negative (Negative) mg/dL Urine Blood Negative (Negative) Urine Nitrite Negative (Negative) Urine Bilirubin Negative (Negative) Urine Urobilinogen Normal (Normal) mg/dL Ur Leukocyte Esterase Negative (Negative) Urine Microscopic RBC 3-5 H (0-3) per hpf Urine Microscopic WBC 5-15 H (0-3) per hpf Ur Squamous Epith Cells Many H (None-Few) per lpf Urine Bacteria Few (None-Few) per hpf Hyaline Casts None Seen (None-Few) per lpf Ur Culture Indicated? YES A (NO) Urine Test Negative (Negative) Consult Discharge Plan - Plan Referrals: Christine Ospina DO [Resident] - 10/07/16 9:00 am (Please bring your photo ID, insurance card, any medications you are on and the new patient packet that you will get in the mail. If you need to cancel, please give a 24 hour notice. Thank you)
--- NOTE | 2016-08-09 14:19 | Pulmonology Consult Note ---
<Enoch Nguyen - Last Filed: 08/09/16 15:50> Date of Encounter: 08/09/16 Time of Encounter: 14:09 Assessment and Plan (1) Hypoxemia Current Visit: Yes Status: Acute 35-year-old female hx of tobacco abuse presented with chief complaint of seizures, found to have aspiration pneumonia currently treated with Levaquin. Patient had ABG done this morning showed a PO2 of 38. When evaluating the patient her SPO2 was 94% on 2 L oxygen. She is not in any respiratory distress. Bilateral Basilar Lung sounds are diminished with dullness to percussion. There is no indication of use of accessory muscles. Patient states that her oxygen saturation decreases greatly with exertion. Patient desaturates to 88% on room air. -CXR shows b/l basilar pulmonary infiltrates -CT Chest: b/l pleural effusion larger on right with atelectasis and ground glass opacities, with emphysematous changes. -ABG: pH 7.46, pCO2 38, pO2 43, HCO3 27, ABG O2 82. -A-a gradient of 59.2 Elevated A-a gradient and imaging points to a number of possible etiologies including: atelectasis, CHF-has b/l pleural effusions, Pneumonia, COPD -Patient will need to be started on bronchodilators, symbicort, lasix -continue clindamycin but recommend d/c Levaquin as fluroquinalones decrease seizure thresholds -monitor respiratory status, if worsened may need to under go thoracentesis for fluid analysis. -patient should d/c tobacco use. She is uptodate on her immunizations -incentive spirometery, patient needs to walk/ sit up in chair. (2) Generalized seizure Current Visit: Yes Status: Acute unknown etiology. EEG, MRI and CT head normal. neurology on board. Recommend no further treatment at this point. (3) Aspiration pneumonia Current Visit: Yes Status: Suspected Aspiration penumonai/chemical pneumonitis d/c levaquin continue clindamycin blood cultures negative respiratory panel appreciate ID input. Qualifiers: Aspiration pneumonia type: due to gastric secretions Laterality: bilateral Lung location: lower lobe of lung Qualified Code(s): J69.0 - Pneumonitis due to inhalation of food and vomit History of Present Illness Consult date: 08/09/16 Requesting physician: Galilea Drake Reason for consult: other (aspiration penumonia, hypoxemia ) Chief complaint: seizure History of present illness: 34-year-old female with a history of depression, anxiety, status post splenectomy (2015) presented to the ER with witnessed seizure. Seizure was witnessed by her boyfriend and sister. Was described as a jerking activity and patient was unconscious. She admits to postictal state. She denies any tongue biting, bowel or bladder incontinence. Patient does not have a history of seizures in the past. She does admit to nausea and vomiting. Patient was admitted to hospital and started treatment for aspiration pneumonia. chest x- ray showed bilateral basilar opacities most likely aspiration pneumonitis/ pneumonia. MRI and CT scan head were negative. EEG was normal and neurology recommended no antiepileptic therapy at this time. Patient was started on clindamycin initially however her leukocytosis worsened and she was transitioned to Levaquin IV. Consult was placed for pulmonology secondary to a blood gas showing a P O2 of 38. At this time patient was laying in bed, without distress, conversing calmly. She admitted to shortness of breath which worsens with exertion. Patient states she is uptodate on her immunizations. Admits to smoking 1ppd. No family hx of lung cancer. Past Med Surg Social Fam HX - Past Medical History Medical history: no medical history Psychiatric history: ADHD, depression - Past Surgical History Surgical History: no surgical history, other (splenectomy ) - Social History Smoking Status: Current every day smoker Packs per day: 2 Smokeless Tobacco Status: No Alcohol use: none, rarely Drug use: none Medications and Allergies Albuterol Sulfate [Albuterol Inhaler] 2 puff IH QID 2 Days 12/16/15 [Rx] TraMADol [Ultram] 50 mg PO Q6HR PRN #10 tablet 12/16/15 [Rx] Multivitamin [One Daily Essential] 1 tab PO DAILY 08/05/16 [History] Allergies azithromycin [From Zithromax Z-Carlos] Allergy (Verified 12/16/15 11:41) Rash All Systems: A 10-system review of systems was performed and is negative for pertinent findings except as documented above in the HPI. - Constitutional Constitutional: no chills, no fatigue, no headache(s), no night sweats - EENT Nose, mouth and throat: no dizziness, no sore throat - Cardiovascular Cardiovascular: dyspnea, no chest pain - Respiratory Respiratory: cough, dyspnea, no hemoptysis - Gastrointestinal Gastrointestinal: other (mid abdominal scar s/p splenectmy ), no abdominal pain - Genitourinary Genitourinary: no difficulty urinating, no urinary frequency - Musculoskeletal Musculoskeletal: myalgias, no joint swelling, no muscle weakness - Neurological Neurological: convulsions, no dizziness, no syncope - Psychiatric Psychiatric: anxiety, depression - Endocrine Endocrine: no cold intolerance, no excessive sweating, no palpitations Physical Examination Vital Signs: Vital Signs, Last 4 Hours Temp Pulse Resp BP Pulse Ox 08/09/16 10:56 98.0 F 69 14 127/70 90 L General appearance: no acute distress Eyes: nonicteric ENT: oropharynx moist Neck: supple, other (no nuchal rigidity ) Effort: normal Inspection: normal Auscultation: bilateral: clear (upper lobes), diminished breath sounds (b/l bases) Percussion: bilateral: not dull, dull (lower lobes b/l ) Tactile fremitus: bilateral: normal Cardiovascular: regular rate and rhythm Gastrointestinal: normoactive bowel sounds, non-distended Integumentary: normal, other (mid abdominal scar s/p splenectomy ) Extremities: no cyanosis, no edema, other (clubbing fingers ) Musculoskeletal: no deformities, ROM normal normal mental status, non-focal exam mood appropriate, affect normal Results - Laboratory Findings CBC and BMP: 08/09/16 04:13 08/09/16 04:13 ABG ABG pH 7.46 pH Units (7.32-7.45) H 08/09/16 10:49 ABG pCO2 38 mmHg (35-45) 08/09/16 10:49 ABG pO2 43 mmHg (85-104) L* 08/09/16 10:49 ABG O2 Saturation 82 % (95-98) L 08/09/16 10:49 Abnormal lab findings: Abnormal lab results WBC 15.1 K/mcL (4.3-11.1) H 08/09/16 04:13 RBC 2.74 M/mcL (3.82-4.97) L 08/09/16 04:13 Hgb 8.6 g/dL (11.5-15.4) L 08/09/16 04:13 Hct 26.2 % (35.3-44.9) L 08/09/16 04:13 RDW 14.8 % (11.5-14.5) H 08/09/16 04:13 Plt Count 529 K/mcL (140-400) H 08/09/16 04:13 MPV 9.3 fL (9.4-12.4) L 08/09/16 04:13 Neutrophils # 9.2 K/mcL (1.6-8.9) H 08/09/16 04:13 Eosinophils # 0.8 K/mcL (0.0-0.6) H 08/09/16 04:13 Platelet Estimate Slight increase (Normal) H 08/05/16 06:28 ABG pH 7.46 pH Units (7.32-7.45) H 08/09/16 10:49 ABG pO2 43 mmHg (85-104) L* 08/09/16 10:49 ABG Total CO2 28.2 mEq/L (20-26) H 08/09/16 10:49 ABG O2 Saturation 82 % (95-98) L 08/09/16 10:49 Albumin 2.9 g/dL (3.5-5.0) L 08/05/16 06:28 Globulin 4.2 g/dL (2.4-3.5) H 08/05/16 06:28 Albumin/Globulin Ratio 0.7 (1.1-2.2) L 08/05/16 06:28 Urine Clarity Cloudy (Clear) A 08/05/16 05:21 Urine Protein 30 mg/dL (Neg-Trace) H 08/05/16 05:21 Urine Microscopic RBC 3-5 per hpf (0-3) H 08/05/16 05:21 Urine Microscopic WBC 5-15 per hpf (0-3) H 08/05/16 05:21 Ur Squamous Epith Cells Many per lpf (None-Few) H 08/05/16 05:21 Ur Culture Indicated? YES (NO) A 08/05/16 05:21 Urine Opiates Screen Positive ng/mL (Iqtzsb=157) H 08/05/16 05:21 - Diagnostic Findings Chest x-ray: report reviewed - Clinical Findings Intake & Output: Intake & Output 08/08/16 08/09/16 08/09/16 23:59 07:59 15:59 Intake Total 0 / 0 350 / 350 240 / 240 Output Total 0 / 0 1200 / 1200 900 / 900 Balance 0 / 0 -850 / -850 -660 / -660 Weight 60.2 kg Consult Discharge Plan - Plan Referrals: Christine Ospina DO [Resident] - 10/07/16 9:00 am (Please bring your photo ID, insurance card, any medications you are on and the new patient packet that you will get in the mail. If you need to cancel, please give a 24 hour notice. Thank you) <Kwaku Champagne - Last Filed: 08/09/16 16:57> All Systems: A 10-system review of systems was performed and is negative for pertinent findings except as documented above in the HPI. Physical Examination Vital Signs: Vital Signs, Last 4 Hours Temp Pulse Resp BP Pulse Ox 08/09/16 14:35 98.6 F 67 16 134/80 95 Results - Laboratory Findings CBC and BMP: 08/09/16 04:13 08/09/16 04:13 ABG ABG pH 7.46 pH Units (7.32-7.45) H 08/09/16 10:49 ABG pCO2 38 mmHg (35-45) 08/09/16 10:49 ABG pO2 43 mmHg (85-104) L* 08/09/16 10:49 ABG O2 Saturation 82 % (95-98) L 08/09/16 10:49 Abnormal lab findings: Abnormal lab results WBC 15.1 K/mcL (4.3-11.1) H 08/09/16 04:13 RBC 2.74 M/mcL (3.82-4.97) L 08/09/16 04:13 Hgb 8.6 g/dL (11.5-15.4) L 08/09/16 04:13 Hct 26.2 % (35.3-44.9) L 08/09/16 04:13 RDW 14.8 % (11.5-14.5) H 08/09/16 04:13 Plt Count 529 K/mcL (140-400) H 08/09/16 04:13 MPV 9.3 fL (9.4-12.4) L 08/09/16 04:13 Neutrophils # 9.2 K/mcL (1.6-8.9) H 08/09/16 04:13 Eosinophils # 0.8 K/mcL (0.0-0.6) H 08/09/16 04:13 Platelet Estimate Slight increase (Normal) H 08/05/16 06:28 ABG pH 7.46 pH Units (7.32-7.45) H 08/09/16 10:49 ABG pO2 43 mmHg (85-104) L* 08/09/16 10:49 ABG Total CO2 28.2 mEq/L (20-26) H 08/09/16 10:49 ABG O2 Saturation 82 % (95-98) L 08/09/16 10:49 Albumin 2.9 g/dL (3.5-5.0) L 08/05/16 06:28 Globulin 4.2 g/dL (2.4-3.5) H 08/05/16 06:28 Albumin/Globulin Ratio 0.7 (1.1-2.2) L 08/05/16 06:28 Urine Clarity Cloudy (Clear) A 08/05/16 05:21 Urine Protein 30 mg/dL (Neg-Trace) H 08/05/16 05:21 Urine Microscopic RBC 3-5 per hpf (0-3) H 08/05/16 05:21 Urine Microscopic WBC 5-15 per hpf (0-3) H 08/05/16 05:21 Ur Squamous Epith Cells Many per lpf (None-Few) H 08/05/16 05:21 Ur Culture Indicated? YES (NO) A 08/05/16 05:21 Urine Opiates Screen Positive ng/mL (Nqefav=173) H 08/05/16 05:21 - Clinical Findings Intake & Output: Intake & Output 08/09/16 08/09/16 08/09/16 07:59 15:59 23:59 Intake Total 350 / 350 340 / 340 Output Total 1200 / 1200 1800 / 1800 Balance -850 / -850 -1460 / -1460 Weight 60.2 kg - Attending Attestation I examined this patient and my medical decision-making was reviewed with the WEFT STRAIGHTENER/PA/Advanced Practice Nurse/Resident Physician. I agree with the documented findings, disposition and treatment plan as described except to the extent set forth below. Patient seen and examined. Labs, radiology, chart personally reviewed. Agree with resident's history and physical, assessment, plan with following comments: SALES CLERK FOOD: Patient follows commands, Pulmonary: Acceptable oxygenation and ventilation. Patient with acute hypoxic respiratory failure which is multifactorial from atelectasis and she needs incentive spirometry as well as underlying emphysema which needs to be treated with bronchodilators as well as outpatient follow-up. Patient had bilateral pleural effusion, it could be from hypoalbuminemia, however exact etiology is not clear at this time and needs diuresis as well as treatment for pneumonia x- rays normal. Preferably not to treat with fluoroquinolone due to history of seizure. If no improvement concentration for thoracentesis and bronchoscopy is recommended. We will follow-up and make decision based on the progress of her condition. Cardiovascular: stable Thank you for the consultation and discussed with the patient and answered all Questions
[2016-08-09] MEDS: Clindamycin 600 MG/50 ML 600 MG/50 ML IV.SOLN IVPB SCH ×2 (15:29→23:47)
[2016-08-09] MEDS: Ibuprofen 600 MG TABLET PO PRN ×2 (15:29→22:14)
[2016-08-09 18:25] LABS: Adenovirus Not Detected (Not Detect); Bordetella Pertussis Not Detected (Not Detect); Chlamydophila pneumoniae Not Detected (Not Detect); Coronavirus 229E Not Detected (Not Detect); Coronavirus HKU1 Not Detected (Not Detect); Coronavirus NL63 Not Detected (Not Detect); Coronavirus OC43 Not Detected (Not Detect); Human Metapneumovirus Not Detected (Not Detect); Human Rhinovirus/Enterovirus Not Detected (Not Detect); Influenza A Subtype 2009 H1 Not Detected (Not Detect); Influenza A Untypeable Not Detected (Not Detect); Influenza B Not Detected (Not Detect); Mycoplasma pneumoniae Not Detected (Not Detect); Parainfluenza Virus 1 Not Detected (Not Detect); Parainfluenza Virus 2 Not Detected (Not Detect); Parainfluenza Virus 3 Not Detected (Not Detect); Parainfluenza Virus 4 Not Detected (Not Detect); Respiratory Syncytial Virus Not Detected (Not Detect)
[2016-08-09] MEDS: Furosemide 20 MG/2 ML VIAL IVP SCH (18:55)
[2016-08-09] MEDS: Prochlorperazine 10 MG/2 ML VIAL IVP PRN (20:22)
[2016-08-09] MEDS: Ipratropium/Albuterol Neb 3 ML IH SCH ×2 (20:55→23:28)
[2016-08-09] MEDS: Budesonide/Formoterol 80/4.5 MDI IH SCH (23:28)
[2016-08-10] MEDS: *HR* HYDROcodone/Acet 5/325 mg TABLET PO PRN ×4 (00:52→21:31)
[2016-08-10 03:37] LABS: Hematocrit 27.5 % (35.3-44.9); Hemoglobin 9.5 g/dL (11.5-15.4); Mean Corpuscular HGB Conc 34.5 g/dL (31.6-35.5); Mean Corpuscular Hemoglobin 31.8 pg (28.0-33.3); Mean Platelet Volume 8.9 fL (9.4-12.4); Red Blood Count 2.99 M/mcL (3.82-4.97); Red Cell Distribution Width 14.4 % (11.5-14.5)
[2016-08-10 03:49] LABS: BUN/Creatinine Ratio 12 (6-26); Blood Urea Nitrogen 9 mg/dL (7-20); Calcium 9.4 mg/dL (8.6-10.8); Carbon Dioxide 25 mEq/L (19-29); Chloride 104 mEq/L (98-109); Glucose 128 mg/dL (70-99); Osmolality,Calculated 288 (280-300); Potassium 3.6 mEq/L (3.5-4.5); Sodium 139 mEq/L (136-145); eGFR For African Americans > 60 (> 60); eGFR For Non-African Americans > 60 (> 60)
[2016-08-10] MEDS: Ipratropium/Albuterol Neb 3 ML IH SCH ×6 (04:47→23:38)
[2016-08-10] MEDS: Nicotine 21 MG PATCH.TD24 TD SCH (07:37)
[2016-08-10] MEDS: Multivit/Ca/Min/Fe/FA 1 TAB TABLET PO SCH (07:37)
[2016-08-10] MEDS: *HR* Heparin 5,000 UNIT/ML VIAL SQ SCH ×3 (07:37→23:55)
[2016-08-10] MEDS: Clindamycin 600 MG/50 ML 600 MG/50 ML IV.SOLN IVPB SCH ×3 (07:38→23:55)
[2016-08-10] MEDS: Furosemide 20 MG/2 ML VIAL IVP SCH (07:38)
--- NOTE | 2016-08-10 07:58 | Internal Med Progress Note ---
Date of Encounter: 08/10/16 Time of Encounter: 07:56 - Assessment and plan (1) Hypoxia Current Visit: Yes Status: Acute Assessment and plan: improving (2) Generalized seizure Current Visit: Yes Status: Acute Assessment and plan: see neurology evaluation no need for medication at this time (3) Aspiration pneumonia Current Visit: Yes Status: Acute Assessment and plan: bilat pneumonia with hypoxemia appreciate ID and pulmonary imput clinically she is much better Qualifiers: Aspiration pneumonia type: due to gastric secretions Laterality: bilateral Lung location: lower lobe of lung Qualified Code(s): J69.0 - Pneumonitis due to inhalation of food and vomit - Subjective Interval history: patient with no prior medical problems admitted following seizure episode and developed aspiration pneumonia currently still hypoxic with minimal ambulation will chnage antiobiotic back to iv and check abg and consult ID wbc going back up patient seen today and examined seen by ID and It Manager yesterday today says she feel much better sob has improved - Constitutional Vitals: Temp Pulse Resp BP Pulse Ox 97.6 F 56 14 105/62 96 08/10/16 03:29 08/10/16 03:29 08/10/16 03:29 08/10/16 03:29 08/10/16 03:29 General appearance: Present: A&O X 3, no acute distress, answers questions appropriately - Eye Eye exam: Present: PERRL, conjuntiva pink, sclera anicteric Pupils: Present: PERRL - Neck Neck exam general surgery: Present: supple, trachea midline. Absent: lymphadenopathy - Respiratory Respiratory exam: Present: decreased breath sounds, rhonchi - Cardiovascular Cardiovascular exam: Present: RRR, +S1, +S2. Absent: diastolic murmur, gallop, rubs, systolic murmur - GI/Abdominal GI/Abdominal exam: Present: normal bowel sounds, soft, no peritoneal signs. Absent: distended, tenderness Internal Medicine: Result - Labs CBC & Chem 7: 08/10/16 03:25 08/10/16 03:25 Labs: Short CBC 08/10/16 Range/Units 03:25 WBC 11.7 H (4.3-11.1) K/mcL Hgb 9.5 L (11.5-15.4) g/dL Hct 27.5 L (35.3-44.9) % Plt Count 645 H (140-400) K/mcL BMP 08/10/16 03:25 Sodium 139 Potassium 3.6 Chloride 104 Carbon Dioxide 25 BUN 9 Creatinine 0.75 Glucose 128 H Calcium 9.4 - ABG Interpretation ABG results: ABG ABG pH 7.46 pH Units (7.32-7.45) H 08/09/16 10:49 ABG pCO2 38 mmHg (35-45) 08/09/16 10:49 ABG pO2 43 mmHg (85-104) L* 08/09/16 10:49 ABG O2 Saturation 82 % (95-98) L 08/09/16 10:49 - Impressions Impressions Chest CT 08/09/16 14:13 IMPRESSION: 1. Moderate right and small left pleural effusion with bibasilar opacities, concerning for infection in the appropriate clinical setting. 2. Nonspecific multifocal patchy areas of ground-glass are seen elsewhere. Differential considerations include edema, infection, or drug reaction. 3. Mediastinal and hilar lymphadenopathy, likely reactive. 4. Heterogeneous attenuation of the liver, nonspecific. Correlate with liver function test to exclude hepatitis. 5. Emphysema. 6. Splenectomy. D/ / 08/09/2016 15:37:53 Mary Wong MD / luis miguel Interpreting Provider: Mary Wong MD Consult Discharge Plan - Plan Referrals: Christine Ospina DO [Resident] - 10/07/16 9:00 am (Please bring your photo ID, insurance card, any medications you are on and the new patient packet that you will get in the mail. If you need to cancel, please give a 24 hour notice. Thank you)
[2016-08-10] MEDS: Budesonide/Formoterol 80/4.5 MDI IH SCH ×2 (08:23→19:39)
--- NOTE | 2016-08-10 11:19 | Pulmonology Progress Note ---
Date of Encounter: 08/10/16 Time of Encounter: 10:00 Assessment and Plan (1) Acute hypoxemic respiratory failure Current Visit: Yes Status: Acute Patient is feeling much better with incentive spirometry and current treatment. Discussed with primary team will follow-up as needed and thank you for the consult (2) Bilateral pleural effusion Current Visit: Yes Status: Acute Continue with diuresis as much as possible (3) Emphysema of lung Current Visit: Yes Status: Chronic Patient can follow up as outpatient. She will need pulmonary function tests and bronchodilators Qualifiers: Emphysema type: centrilobular Qualified Code(s): J43.2 - Centrilobular emphysema Subjective Principal diagnosis: Dyspnea Interval history: Patient feeling much better and she is able to breathe deeper Objective PUL Vital signs: Last Vital Signs Temp 97.8 F 08/10/16 08:33 Pulse 75 08/10/16 08:33 Resp 16 08/10/16 08:33 BP 97/54 08/10/16 08:33 Pulse Ox 97 08/10/16 08:33 General appearance: no acute distress Eyes: nonicteric ENT: oropharynx moist Effort: normal Auscultation: left: clear, right: diminished breath sounds (Right base) Percussion: right: dull Cardiovascular: regular rate and rhythm Gastrointestinal: normoactive bowel sounds Extremities: no cyanosis, no edema normal mental status, non-focal exam mood appropriate Results - Laboratory Findings CBC and BMP: 08/10/16 03:25 08/10/16 03:25 ABG ABG pH 7.46 pH Units (7.32-7.45) H 08/09/16 10:49 ABG pCO2 38 mmHg (35-45) 08/09/16 10:49 ABG pO2 43 mmHg (85-104) L* 08/09/16 10:49 ABG O2 Saturation 82 % (95-98) L 08/09/16 10:49 Abnormal lab findings: Abnormal lab results WBC 11.7 K/mcL (4.3-11.1) H 08/10/16 03:25 RBC 2.99 M/mcL (3.82-4.97) L 08/10/16 03:25 Hgb 9.5 g/dL (11.5-15.4) L 08/10/16 03:25 Hct 27.5 % (35.3-44.9) L 08/10/16 03:25 Plt Count 645 K/mcL (140-400) H 08/10/16 03:25 MPV 8.9 fL (9.4-12.4) L 08/10/16 03:25 Neutrophils # 9.2 K/mcL (1.6-8.9) H 08/09/16 04:13 Eosinophils # 0.8 K/mcL (0.0-0.6) H 08/09/16 04:13 Platelet Estimate Slight increase (Normal) H 08/05/16 06:28 ABG pH 7.46 pH Units (7.32-7.45) H 08/09/16 10:49 ABG pO2 43 mmHg (85-104) L* 08/09/16 10:49 ABG Total CO2 28.2 mEq/L (20-26) H 08/09/16 10:49 ABG O2 Saturation 82 % (95-98) L 08/09/16 10:49 Glucose 128 mg/dL (70-99) H 08/10/16 03:25 Albumin 2.9 g/dL (3.5-5.0) L 08/05/16 06:28 Globulin 4.2 g/dL (2.4-3.5) H 08/05/16 06:28 Albumin/Globulin Ratio 0.7 (1.1-2.2) L 08/05/16 06:28 Urine Clarity Cloudy (Clear) A 08/05/16 05:21 Urine Protein 30 mg/dL (Neg-Trace) H 08/05/16 05:21 Urine Microscopic RBC 3-5 per hpf (0-3) H 08/05/16 05:21 Urine Microscopic WBC 5-15 per hpf (0-3) H 08/05/16 05:21 Ur Squamous Epith Cells Many per lpf (None-Few) H 08/05/16 05:21 Ur Culture Indicated? YES (NO) A 08/05/16 05:21 Urine Opiates Screen Positive ng/mL (Twhzly=470) H 08/05/16 05:21 - Clinical Findings Intake & Output: Intake & Output 08/09/16 08/10/16 08/10/16 23:59 07:59 15:59 Intake Total 350 / 350 50 / 50 Output Total 350 / 350 300 / 300 300 / 300 Balance 0 / 0 -250 / -250 -300 / -300 Weight 60.1 kg Consult Discharge Plan - Plan Referrals: Christine Ospina DO [Resident] - 10/07/16 9:00 am (Please bring your photo ID, insurance card, any medications you are on and the new patient packet that you will get in the mail. If you need to cancel, please give a 24 hour notice. Thank you)
[2016-08-10] MEDS: Ibuprofen 600 MG TABLET PO PRN ×2 (12:45→19:04)
[2016-08-10] MEDS: Prochlorperazine 10 MG/2 ML VIAL IVP PRN (19:06)
[2016-08-11] MEDS: *HR* HYDROcodone/Acet 5/325 mg TABLET PO PRN ×2 (04:26→11:18)
[2016-08-11] MEDS: Ipratropium/Albuterol Neb 3 ML IH SCH ×3 (04:55→11:43)
[2016-08-11 07:50] LABS: Hemoglobin 9.7 g/dL (11.5-15.4); Mean Corpuscular HGB Conc 33.4 g/dL (31.6-35.5); Mean Corpuscular Hemoglobin 31.5 pg (28.0-33.3); Mean Corpuscular Volume 94.2 fL (83.0-100.0); Mean Platelet Volume 9.3 fL (9.4-12.4); Platelet Count 698 K/mcL (140-400); Red Blood Count 3.08 M/mcL (3.82-4.97); Red Cell Distribution Width 14.6 % (11.5-14.5)
[2016-08-11] MEDS: Budesonide/Formoterol 80/4.5 MDI IH SCH (07:51)
[2016-08-11 08:01] LABS: BUN/Creatinine Ratio 17 (6-26); Blood Urea Nitrogen 12 mg/dL (7-20); Calcium 9.7 mg/dL (8.6-10.8); Carbon Dioxide 21 mEq/L (19-29); Chloride 103 mEq/L (98-109); Glucose 101 mg/dL (70-99); Osmolality,Calculated 282 (280-300); Potassium 3.7 mEq/L (3.5-4.5); Sodium 136 mEq/L (136-145); eGFR For African Americans > 60 (> 60); eGFR For Non-African Americans > 60 (> 60)
[2016-08-11] MEDS: Clindamycin 600 MG/50 ML 600 MG/50 ML IV.SOLN IVPB SCH (08:33)
[2016-08-11] MEDS: *HR* Heparin 5,000 UNIT/ML VIAL SQ SCH (08:34)
[2016-08-11] MEDS: Ibuprofen 600 MG TABLET PO PRN (08:34)
[2016-08-11] MEDS: Multivit/Ca/Min/Fe/FA 1 TAB TABLET PO SCH (08:34)
[2016-08-11] MEDS: Nicotine 21 MG PATCH.TD24 TD SCH (08:35)
[2016-08-11 10:25] VITALS: BP 122/71
--- NOTE | 2016-08-11 14:22 | Discharge Summary ---
Date of Encounter: 08/11/16 Time of Encounter: 14:16 - Discharge Diagnosis (1) Hypoxia Priority: Secondary Status: Resolved Comments: resolved (2) Generalized seizure Priority: Primary Status: Acute Comments: no medical treatment indicated see neurology consult (3) Aspiration pneumonia Priority: Secondary Status: Acute Comments: following seizure clinically much better Qualifiers: Aspiration pneumonia type: due to gastric secretions Laterality: bilateral Lung location: lower lobe of lung Qualified Code(s): J69.0 - Pneumonitis due to inhalation of food and vomit - Discharge Medications Prescriptions: Clindamycin HCl 300 mg PO TID #30 capsule Home Medications: Albuterol Sulfate [Albuterol Inhaler] 2 puff IH QID 2 Days 12/16/15 [Rx] TraMADol [Ultram] 50 mg PO Q6HR PRN #10 tablet 12/16/15 [Rx] Multivitamin [One Daily Essential] 1 tab PO DAILY 08/05/16 [History] Clindamycin HCl 300 mg PO TID #30 capsule 08/11/16 [Rx] Allergies/Adverse Reactions: Allergies azithromycin [From Zithromax Z-Carlos] Allergy (Verified 12/16/15 11:41) Rash Procedures/tests Complete & Pending: Procedures Performed prior 72 hours Category Date Time Status CT chest w con [CT] Stat Cat Scan 08/09/16 14:13 Completed Date of admission: 08/08/16 16:02 Primary care physician: Na Rajan Consults: 08/09/16 09:41 Consult to Infectious Diseases [CONS] Routine Consulting Provider: Infectious Disease Abby Reason for Consult: aspiration pneumonia Time Notified: 09:41 Call Completed: No 08/09/16 12:15 Consult to Invasive Line Access Team [CONS] Routine Reason for Consult: IV ATB therapy with failed peripheral insertion Line Type: EPIV PICC line indications: Limited vascular access 08/09/16 13:39 Consult to Pulmonology [CONS] Routine Consulting Provider: [facility] Reason for Consult: aspiration pneumonia with severe hypoxemia Time Notified: 13:40 Call Completed: No Discharging clinician: Galilea Drake Anticipated date of discharge: 08/11/16 - Patient Status Disposition: Home, Self-Care Condition: Good Overall status at discharge: patient is back to baseline - Discharge Instructions Follow Up With: Christine Ospina DO [Resident] - 10/07/16 9:00 am (Please bring your photo ID, insurance card, any medications you are on and the new patient packet that you will get in the mail. If you need to cancel, please give a 24 hour notice. Thank you) Hospital course: Ms. Fontana is a 35 year old female - Time Spent with Patient Total time spent providing and/or coordinating discharge services: - Constitutional Vitals: Temp Pulse Resp BP Pulse Ox 97.5 F L 74 16 122/71 93 L 08/11/16 10:25 08/11/16 10:25 08/11/16 10:25 08/11/16 10:25 08/11/16 10:25 General appearance: Present: A&O X 3, no acute distress, answers questions appropriately
== END 2016-08-11 15:27 | disposition home or self-care (01) | DRG 137 ==
LOC: EMEROO 04:43 → 3ANU 04:43
PROVIDERS: ADMIT Internal Medicine; ATTEND Internal Medicine